=== PATIENT | female | born 1950 | race Caucasian/White ===

== ENCOUNTER 2019-06-22 22:29 | Emergency (ER) | payer MEDICARE ==
[~2019-06-22] VITALS: Ht 162.5 cm; Wt 70.3 kg
[~2019-06-22 22:29] MED LIST: ANAPROX DS550 MG PO; CARAFATE1 G1 PO; FLEXERIL10 MG PO; NKHM; PEPCID20 MG PO; PERCOCET 325 MG1 TA7 PO; TRAMADOL HCL50 MG PO
[2019-06-22 22:35] VITALS: BP 134/63
[2019-06-22 23:04] LABS: BASO % 0.4 % (0.0-1.0); EOS # 0.2 10*3/uL (0.0-0.4); EOS % 2.6 % (1.0-4.0); HEMATOCRIT 44.5 % (37.0-47.0); HEMOGLOBIN 14.8 g/dl (12.0-16.0); LYMPH # 1.1 10*3/uL (1.3-4.4); LYMPH % 13.4 % (27.0-41.0); MEAN CELL VOLUME 91.4 fl (81.0-99.0); MEAN CORPUSCULAR HGB 30.4 pg (27.0-31.0); MEAN CORPUSCULAR HGB CONC 33.3 g/dl (33.0-37.0); MEAN PLATELET VOLUME 10.7 fl (9.6-12.3); MONO # 0.5 10*3/uL (0.1-1.0); MONO % 6.1 % (3.0-9.0); NEUT # 6.2 10*3/uL (2.3-7.9); NEUT % 77.3 % (47.0-73.0); PLATELET COUNT AUTOMATED 324 10*3/uL (130-400); RED BLOOD COUNT 4.87 10*6/uL (4.10-5.10); RED CELL DISTRI WIDTH 14.1 % (0-14.5)
[2019-06-22 23:17] LABS: ALBUMIN 3.6 gm/dl (3.1-4.5); ALKALINE PHOSPHATASE 107 U/L (45-117); BUN 16 mg/dl (7-24); CREATININE 1.04 mg/dL (0.55-1.02); SGOT/AST 20 IU/L (3-35); SGPT/ALT 28 U/L (12-78); TOTAL PROTEIN 7.7 gm/dL (6.4-8.2)
[2019-06-22 23:27] LABS: CHLORIDE 109 mmol/L (98-107); POTASSIUM 3.5 mmol/L (3.5-5.1); SODIUM 139 mmol/L (136-145)
[2019-06-23] MEDS ORDERED: CLINDAMYCIN HC300 MG PO (00:56)
[2019-06-24 06:11] LABS: RBC, FOLATE HEMATOCRIT 44.3 % (34.0-46.6)
== END 2019-06-23 01:04 | disposition home or self-care (01) ==
LOC: ED 22:29
PROVIDERS: Student in an Organized Health Care Education/Training Program
DX: M79.605 Pain in left leg (principal); M79.604 Pain in right leg; M54.2 Cervicalgia; F17.200 Nicotine dependence, unspecified, uncomplicated; Z88.6 Allergy status to analgesic agent

== ENCOUNTER 2019-10-23 10:56 | Inpatient (IN) | payer MEDICARE ==
[~2019-10-23] VITALS: Ht 162.6 cm; Wt 73.0 kg
[2019-10-23 10:56] VITALS: BP 114/61
[~2019-10-23 10:56] MED LIST changes: +CLINDAMYCIN HC300 MG PO
[2019-10-23 11:19] LABS: BASO # 0.1 10*3/uL (0.0-0.1); BASO % 0.6 % (0.0-1.0); EOS # 0.3 10*3/uL (0.0-0.4); EOS % 3.2 % (1.0-4.0); HEMATOCRIT 48.4 % (37.0-47.0); HEMOGLOBIN 15.5 g/dl (12.0-16.0); LYMPH # 2.5 10*3/uL (1.3-4.4); LYMPH % 23.2 % (27.0-41.0); MEAN CELL VOLUME 95.3 fl (81.0-99.0); MEAN CORPUSCULAR HGB 30.5 pg (27.0-31.0); MEAN PLATELET VOLUME 10.1 fl (9.6-12.3); MONO # 0.8 10*3/uL (0.1-1.0); MONO % 7.2 % (3.0-9.0); NEUT # 6.9 10*3/uL (2.3-7.9); NEUT % 65.4 % (47.0-73.0); PLATELET COUNT AUTOMATED 385 10*3/uL (130-400); RED BLOOD COUNT 5.08 10*6/uL (4.10-5.10); RED CELL DISTRI WIDTH 14.9 % (0-14.5); WHITE BLOOD COUNT 10.6 10*3/uL (4.8-10.8)
[2019-10-23 11:31] LABS: ACT PARTIAL THROMBO TIME 28.1 SECONDS (20.0-32.1); INTERNATIONAL NORM RATIO 0.9 (2.0-3.5)
[2019-10-23 11:37] LABS: ALBUMIN 3.4 gm/dl (3.1-4.5); ALKALINE PHOSPHATASE 95 U/L (45-117); BUN 13 mg/dl (7-24); CHLORIDE 106 mmol/L (98-107); CREATININE 0.98 mg/dL (0.55-1.02); POTASSIUM 4.1 mmol/L (3.5-5.1); SGOT/AST 15 IU/L (3-35); SGPT/ALT 20 U/L (12-78); SODIUM 138 mmol/L (136-145); TOTAL PROTEIN 7.2 gm/dL (6.4-8.2)
[2019-10-23 11:43] LABS: TROPONIN I < 0.015 ng/ml (<0.045)
[2019-10-23 12:10] VITALS: BP 114/60
[2019-10-23 12:40] VITALS: BP 112/53
--- NOTE | 2019-10-23 12:40 | NUR ---
A 69, admitted to , under the services of SUNG Muniz DO with a diagnosis of CHEST PAIN. Chief complaint is CHEST PAIN. Patient arrived via bed from ER. Monitor applied. Initial assessment completed. Vital signs taken and recorded. SUNG MUNIZ DO notified of admission to the unit. Orders received. See assessment for past medical history, medications and allergies. Patient and/or family oriented to unit. [address] visitation policy reviewed. Clothing/patient valuable form completed. ASHISH VILCHIS
[2019-10-23] MEDS ORDERED: CLARITIN10 MG PO (13:22)
[2019-10-23] MEDS ORDERED: VITAMIN D22000 UNIT PO (13:22)
[2019-10-23] MEDS ORDERED: LEVOTHYROXINE50 MCG PO (13:23)
[2019-10-23] MEDS ORDERED: OXYBUTYNIN5 MG PO (13:23)
[2019-10-23] MEDS ORDERED: LIPITOR10 MG PO (13:23)
[2019-10-23] MEDS ORDERED: Ipratropium Brom3 ML INH (13:24)
--- NOTE | 2019-10-23 13:39 | NUR ---
CALLED LEFT MESSAGE WITH DR. MCNEAL ANSWERING SERVICE REGARDING CONSULT. THEY WILL SEND INFORMAION TO HIM.
--- NOTE | 2019-10-23 14:50 | NUR ---
SHILPA AYALA MADE AWARE MEDICATIONS ARE UPDATED AND NEED ORDERED.
[2019-10-23 16:00] VITALS: BP 100/53
--- NOTE | 2019-10-23 16:00 | NUR ---
PT RESTING IN BED. RESP-EASY AND REGULAR. NO C/O AT THIS TIME. CALL LIGHT IN REACH. SEE SHIFT ASSESSMENT.
[2019-10-23 20:00] VITALS: BP 108/36
--- NOTE | 2019-10-23 22:17 | NUR ---
PT DENIES ANY NEEDS AT THIS TIME. WILL MONITOR. CALL LIGHT IN REACH.
[2019-10-24] VITALS: BP 108/60
--- NOTE | 2019-10-24 02:49 | NUR ---
PT ASLEEP IN BED. RESPIRATIONS EASY. NO S/S OF DISTRESS NOTED. WILL MONITOR. CALL LIGHT IN REACH.
[2019-10-24 06:33] LABS: BASO # 0.1 10*3/uL (0.0-0.1); BASO % 0.6 % (0.0-1.0); EOS # 0.2 10*3/uL (0.0-0.4); EOS % 2.7 % (1.0-4.0); HEMATOCRIT 49.3 % (37.0-47.0); HEMOGLOBIN 15.7 g/dl (12.0-16.0); MEAN CELL VOLUME 94.1 fl (81.0-99.0); MEAN CORPUSCULAR HGB CONC 31.8 g/dl (33.0-37.0); MEAN PLATELET VOLUME 10.1 fl (9.6-12.3); MONO # 0.6 10*3/uL (0.1-1.0); MONO % 6.2 % (3.0-9.0); NEUT # 5.9 10*3/uL (2.3-7.9); PLATELET COUNT AUTOMATED 379 10*3/uL (130-400); RED BLOOD COUNT 5.24 10*6/uL (4.10-5.10); RED CELL DISTRI WIDTH 14.8 % (0-14.5); WHITE BLOOD COUNT 8.8 10*3/uL (4.8-10.8)
[2019-10-24 06:46] LABS: ALBUMIN 3.2 gm/dl (3.1-4.5); ALKALINE PHOSPHATASE 94 U/L (45-117); BUN 11 mg/dl (7-24); CHLORIDE 106 mmol/L (98-107); CHOLESTEROL 152 mg/dL (<200); CREATININE 0.93 mg/dL (0.55-1.02); FREE T4 1.03 ng/dl (0.76-1.46); HDL CHOLESTEROL 59 mg/dl (40-60); LDL CHOLESTEROL 59 mg/dL (9-159); PHOSPHOROUS 3.2 mg/dL (2.5-4.9); POTASSIUM 4.1 mmol/L (3.5-5.1); SGOT/AST 15 IU/L (3-35); SGPT/ALT 21 U/L (12-78); SODIUM 138 mmol/L (136-145); TOTAL PROTEIN 7.2 gm/dL (6.4-8.2); TRIGLYCERIDES 172 mg/dl (<150); VLDL CHOLESTEROL 34 mg/dL (6-40)
[2019-10-24 07:23] LABS: VITAMIN D, 25-HYDROXY 48.6 ng/mL (30-100)
--- NOTE | 2019-10-24 07:50 | NUR ---
PT RESTING IN BED WITH VISITOR AT HER SIDE. RESP-EASY AND REGULAR AT THIS TIME. LUNGS PB RALES NOTED. NONPROD COUGH NOTED. NO C/O PAIN AT THIS TIME. CALL LIGHT IN REACH. STUDENT NURSE WITH PT TODAY.
[2019-10-24 07:58] VITALS: BP 94/60
--- NOTE | 2019-10-24 09:00 | NUR ---
Video Systems Engineer in to talk to patient. Patient states lives at home with alone. There are few steps in the home. Physician: beverly lora [facility]acy: [facility] Home health services: none Patient's level of ADLs: INDEPENDENT Patient has working utilities: all working DME: none Follow-up physician's appointment after d/c: will be made by hospitalist nurse director upon discharge Does patient want to access PORTAL?: no Discharge plan discussed with patient, daughter in law present, she states she lives at home alone, is independent in adls and ambulation drives. she states she will return home when medically stable and denies any home needs. CHRISTINE EWING
--- NOTE | 2019-10-24 10:50 | NUR ---
IV SITE DC'D. CATH INTACT. SITE ASYMPTOMATIC. PT TOLERATED WELL. DISCHARGE INSTRUCTIONS GIVEN. PT AND FAMILY VERBALIZED UNDERSTANDING. NO VOICED C/O AT THIS TIME. DISCHARGED TO HOME. AMBULATORY.
--- NOTE | 2019-10-24 10:57 | NUR ---
Discharge instructions reviewed with patient/family. Patient receptive and verbalizes understanding. Follow-up care arranged. Written instructions given to patient/family. HEPLOCK REMOVED 2X2 APPLIED. PT AMBULATORY OFF THE FLOOR WITH VISITOR AT HER SIDE. ASHISH VILCHIS
[2019-10-31] MEDS ORDERED: VIT D3 PO (08:55)
== END 2019-10-24 10:57 | disposition home or self-care (01) | DRG 392 ==
LOC: ED 10:56 → 4E 11:50 → EDHOLD 11:50 → 4E 12:16
PROVIDERS: Emergency Medicine; Registered Nurse; ADMIT Internal Medicine
DX: K21.9 Gastro-esophageal reflux disease without esophagitis (principal); J44.9 Chronic obstructive pulmonary disease, unspecified; E78.00 Pure hypercholesterolemia, unspecified; E03.9 Hypothyroidism, unspecified; N32.81 Overactive bladder; Z87.891 Personal history of nicotine dependence; Z88.5 Allergy status to narcotic agent; Z90.710 Acquired absence of both cervix and uterus; Z82.3 Family history of stroke; Z80.1 Family history of malignant neoplasm of trachea, bronchus and lung; Z79.899 Other long term (current) drug therapy

== ENCOUNTER → 2019-10-31 | Outpatient (CLI) | payer MEDICARE ==
[~2019-10-31] MED LIST changes: +CLARITIN10 MG PO; +Ipratropium Brom3 ML INH; +LEVOTHYROXINE50 MCG PO; +LIPITOR10 MG PO; +OXYBUTYNIN5 MG PO; +VIT D3 PO; +VITAMIN D22000 UNIT PO
--- NOTE | ~2019-10-31 | ST ---
[place], [place] EXERCISE STRESS TEST REPORT [id number] UNIT #: [id number] ROOM: DOCTOR: FREDIS MEZA,EMY BIRTHDATE: [birth year] DOS: LEXISCAN CARDIOLITE STUDY Regadenoson was infused over a period of 10 seconds and 40 seconds later, technetium 99 sestamibi was injected intravenously. She tolerated the procedure well, did not have any chest pain, breathing difficulty. Pulse was 105 and blood pressure 118/64. Resting ECG demonstrated normal sinus rhythm and a normal pattern. Post-regadenoson ECG did not show any abnormality. CONCLUSIONS: 1. The patient tolerated regadenoson infusion satisfactorily. 2. No clinical or electrocardiographic evidence of ischemia. 3. Nuclear report will be rendered separately. EMY MCNEAL MD CM:STRESS:EXERCISE STRESS TEST REPORT [id number] EMY MCNEAL MD
--- NOTE | 2019-10-31 12:12 | NUR ---
INFORMED SIGNED CONSENT OBTAINED FOR LEXISCAN STRESS TEST WITH DR PIEDRA. RESTING EKG NSR HR 68 BP 120/66. PULSE OX 97% LUNGS CLEAR. PT COMPLETED ONE MINUTE OF A LEXISCAN PROTOCOL WITH PT RECEIVING LEXISCAN 0.4MG IV OVER 10 SECONDS. NO ARRHYTHMIAS NOTED, NONDIAGNOSTIC ST CHANGES SEEN. LAST RECOVERY HR OF 97 BP 118/64. PT IN STABLE CONDITION, AWAITING NUCLEAR IMAGES.
== END | disposition home or self-care (01) ==
LOC: CARD 01:13
DX: R07.9 Chest pain, unspecified (principal)

== ENCOUNTER 2021-04-24 08:21 | Inpatient (IN) | payer MEDICARE ==
[2021-04-24] VITALS (7 sets, daily range): BP systolic 106–176; BP diastolic 48–76
[~2021-04-24] VITALS: Ht 162.5 cm; Wt 73.9 kg
[2021-04-24 08:48] LABS: BASO # 0.1 10*3/uL (0.0-0.1); BASO % 1.1 % (0.0-1.0); EOS # 0.2 10*3/uL (0.0-0.4); HEMATOCRIT 46.8 % (37.0-47.0); LYMPH # 1.7 10*3/uL (1.3-4.4); LYMPH % 30.1 % (27.0-41.0); MEAN CELL VOLUME 92.7 fl (81.0-99.0); MEAN CORPUSCULAR HGB 29.7 pg (27.0-31.0); MEAN CORPUSCULAR HGB CONC 32.1 g/dl (33.0-37.0); MEAN PLATELET VOLUME 10.5 fl (9.6-12.3); MONO # 0.5 10*3/uL (0.1-1.0); MONO % 8.2 % (3.0-9.0); NEUT # 3.2 10*3/uL (2.3-7.9); NEUT % 57.4 % (47.0-73.0); PLATELET COUNT AUTOMATED 352 10*3/uL (130-400); RED BLOOD COUNT 5.05 10*6/uL (4.10-5.10); RED CELL DISTRI WIDTH 13.8 % (0-14.5); WHITE BLOOD COUNT 5.6 10*3/uL (4.8-10.8)
[2021-04-24 09:01] LABS: ACT PARTIAL THROMBO TIME 28.3 SECONDS (20.0-32.1)
[2021-04-24 09:05] LABS: LIPASE 102 U/L (73-393)
[2021-04-24 09:05] LABS: ALBUMIN 3.7 gm/dl (3.1-4.5); ALKALINE PHOSPHATASE 108 U/L (45-117); BUN 13 mg/dl (7-24); CHLORIDE 110 mmol/L (98-107); CREATININE 0.91 mg/dL (0.55-1.02); POTASSIUM 3.8 mmol/L (3.5-5.1); SGOT/AST 16 IU/L (3-35); SGPT/ALT 24 U/L (12-78); SODIUM 139 mmol/L (136-145); TOTAL PROTEIN 8.1 gm/dL (6.4-8.2)
[2021-04-24 09:06] LABS: TROPONIN I < 0.015 ng/ml (<0.045)
[2021-04-24] MEDS ORDERED: VITAMIN D210 MCG PO (11:00)
[2021-04-24] MEDS ORDERED: ATORVASTATIN CA10 M1 PO (11:01)
[2021-04-24] MEDS ORDERED: ALEVE220 MG PO (17:21)
== END 2021-04-24 18:23 | disposition home or self-care (01) | DRG 558 ==
LOC: ED 08:21 → 5E 09:51 → EDHOLD 09:51 → 5E 10:31
PROVIDERS: Emergency Medicine; ADMIT Internal Medicine; ATTEND Internal Medicine
DX: M75.22 Bicipital tendinitis, left shoulder (principal); M77.12 Lateral epicondylitis, left elbow; R00.1 Bradycardia, unspecified; E87.8 Other disorders of electrolyte and fluid balance, not elsewhere classified; E83.41 Hypermagnesemia; E78.00 Pure hypercholesterolemia, unspecified; E03.9 Hypothyroidism, unspecified; I20.8 Other forms of angina pectoris; J44.9 Chronic obstructive pulmonary disease, unspecified; N32.81 Overactive bladder; E78.5 Hyperlipidemia, unspecified; F17.210 Nicotine dependence, cigarettes, uncomplicated; R03.0 Elevated blood-pressure reading, without diagnosis of hypertension; Z88.6 Allergy status to analgesic agent; Z88.5 Allergy status to narcotic agent; Z90.710 Acquired absence of both cervix and uterus; Z82.3 Family history of stroke; Z83.3 Family history of diabetes mellitus; Z82.49 Family history of ischemic heart disease and other diseases of the circulatory system; Z80.1 Family history of malignant neoplasm of trachea, bronchus and lung; Z79.899 Other long term (current) drug therapy; Z71.6 Tobacco abuse counseling